=== PATIENT | male | born 1980 | race Caucasian/White ===

== ENCOUNTER 2018-06-17 19:05 | Emergency (ER) | payer SELFPAY, OTHER ==
[2018-06-17 20:06] LABS: BASO # 0.1 10^3/uL (0.0-0.2); BASO % 0.5 % (0.0-1.0); EOS # 0.1 10^3/uL (0.0-0.50); EOS % 0.8 % (0.0-3.0); HEMATOCRIT 47.4 % (42.0-52.0); HEMOGLOBIN 16.4 g/dl (13.5-17.5); IMMATURE GRANULOCYTE % 0.7 % (0-3.0); LYMPH # 1.7 10^3/uL (1.5-4.5); LYMPH % 13.6 % (24.0-44.0); MEAN CORPUSCULAR HEMOGLOBIN 28.9 pg (27.0-33.0); MEAN CORPUSCULAR HGB CONC 34.6 g/dl (32.0-36.5); MEAN CORPUSCULAR VOLUME 83.6 fl (80.0-96.0); MONO % 8.3 % (0.0-5.0); NEUTROPHILS # 9.5 10^3/uL (1.8-7.7); NEUTROPHILS % 76.1 % (36.0-66.0); PLATELET COUNT, AUTOMATED 400 10^3/uL (150-450); RED BLOOD COUNT 5.67 10^6/uL (4.30-6.10); RED CELL DISTRIBUTION WIDTH 13.7 % (11.5-14.5); WHITE BLOOD COUNT 12.5 10^3/uL (4.0-10.0)
[2018-06-17 20:24] LABS: ALBUMIN 3.8 GM/DL (3.2-5.2); ALBUMIN/GLOBULIN RATIO 1.03 (1.00-1.93); ALKALINE PHOSPHATASE 102 U/L (45-117); ALT/SGPT 31 U/L (12-78); AMYLASE 37 U/L (25-115); ANION GAP 7 MEQ/L (8-16); AST/SGOT 21 U/L (7-37); BILIRUBIN,DIRECT 0.1 MG/DL (0.0-0.2); BILIRUBIN,TOTAL 0.5 MG/DL (0.2-1.0); BLOOD UREA NITROGEN 8 MG/DL (7-18); CALCIUM LEVEL 8.9 MG/DL (8.5-10.1); CARBON DIOXIDE LEVEL 30 MEQ/L (21-32); CHLORIDE LEVEL 103 MEQ/L (98-107); CREATININE FOR GFR 0.78 MG/DL (0.70-1.30); GLOMERULAR FILTRATION RATE > 60.0 (>60); GLUCOSE, FASTING 91 MG/DL (70-100); LIPASE 158 U/L (73-393); POTASSIUM SERUM 4.5 MEQ/L (3.5-5.1); SODIUM LEVEL 140 MEQ/L (136-145); TOTAL PROTEIN 7.5 GM/DL (6.4-8.2)
[2018-06-17] MEDS: GI COCKTAIL 50ML BTL(HYOSCYAMINE/MAALOX/LIDOCAINE VISCOUS)(1:3:1) PO (21:50)
== END 2018-06-17 22:16 | disposition home or self-care (01) ==
LOC: M ED 19:05
DX: K43.9 Ventral hernia without obstruction or gangrene (principal); K21.9 Gastro-esophageal reflux disease without esophagitis; Z91.018 Allergy to other foods
CPT/HCPCS: 76705

== ENCOUNTER 2018-08-14 19:48 | Emergency (ER) | payer SELFPAY, OTHER ==
[2018-08-14] MEDS: NS 1,000 ML IV (20:03)
[2018-08-14] MEDS: ASPIRIN 81 MG CHEW TABLET PO (20:15)
[2018-08-14 20:17] LABS: BASO # 0.1 10^3/uL (0.0-0.2); BASO % 0.4 % (0.0-1.0); EOS # 0.1 10^3/uL (0.0-0.50); EOS % 1.2 % (0.0-3.0); HEMATOCRIT 45.9 % (42.0-52.0); HEMOGLOBIN 15.8 g/dl (13.5-17.5); IMMATURE GRANULOCYTE % 0.5 % (0-3.0); LYMPH % 17.4 % (24.0-44.0); MEAN CORPUSCULAR HEMOGLOBIN 28.7 pg (27.0-33.0); MEAN CORPUSCULAR HGB CONC 34.4 g/dl (32.0-36.5); MEAN CORPUSCULAR VOLUME 83.5 fl (80.0-96.0); MONO # 0.9 10^3/uL (0.0-0.8); MONO % 7.7 % (0.0-5.0); NEUTROPHILS # 8.3 10^3/uL (1.8-7.7); NEUTROPHILS % 72.8 % (36.0-66.0); PLATELET COUNT, AUTOMATED 379 10^3/uL (150-450); RED CELL DISTRIBUTION WIDTH 13.3 % (11.5-14.5); WHITE BLOOD COUNT 11.4 10^3/uL (4.0-10.0)
[2018-08-14 20:52] LABS: ALBUMIN 3.7 GM/DL (3.2-5.2); ALBUMIN/GLOBULIN RATIO 1.03 (1.00-1.93); ALKALINE PHOSPHATASE 84 U/L (45-117); ALT/SGPT 28 U/L (12-78); ANION GAP 8 MEQ/L (8-16); AST/SGOT 25 U/L (7-37); BILIRUBIN,DIRECT < 0.1 MG/DL (0.0-0.2); BILIRUBIN,TOTAL 0.5 MG/DL (0.2-1.0); BLOOD UREA NITROGEN 11 MG/DL (7-18); CARBON DIOXIDE LEVEL 28 MEQ/L (21-32); CHLORIDE LEVEL 103 MEQ/L (98-107); CPK CREATINE PHOSPHOKINASE 217 U/L (39-308); CREATININE FOR GFR 0.88 MG/DL (0.70-1.30); FREE T4 0.89 NG/DL (0.76-1.46); GLOMERULAR FILTRATION RATE > 60.0 (>60); GLUCOSE, FASTING 104 MG/DL (70-100); MB/CK RELATIVE INDEX 0.78 (< OR =4); POTASSIUM SERUM 3.9 MEQ/L (3.5-5.1); SODIUM LEVEL 139 MEQ/L (136-145); TOTAL PROTEIN 7.3 GM/DL (6.4-8.2); TROPONIN I < 0.02 NG/ML (< 0.10)
== END 2018-08-14 21:31 | disposition home or self-care (01) ==
LOC: M ED 19:48
DX: I49.3 Ventricular premature depolarization (principal); R07.89 Other chest pain; K21.9 Gastro-esophageal reflux disease without esophagitis; K44.9 Diaphragmatic hernia without obstruction or gangrene; Z72.0 Tobacco use; Z91.018 Allergy to other foods
CPT/HCPCS: 71045

== ENCOUNTER 2019-10-09 12:54 | Emergency (ER) | payer OTHER, SELFPAY ==
[~2019-10-09] VITALS: Ht 182.9 cm; Wt 141.6 kg
[~2019-10-09 12:54] MED LIST: PROT1TAB2 PO
[2019-10-09] MEDS ORDERED: NS 1,000 ML IV ONE (13:30)
[2019-10-09] MEDS ORDERED: ONDANSETRON 4MG/2ML VIAL (J2405) IV ONE (13:45)
[2019-10-09 13:47] LABS: BASO # 0.1 10^3/uL (0.0-0.2); BASO % 0.6 % (0.0-1.0); EOS # 0.1 10^3/uL (0.0-0.5); EOS % 0.7 % (0.0-3.0); HEMATOCRIT 49.7 % (42.0-52.0); HEMOGLOBIN 16.5 g/dl (13.5-17.5); LYMPH # 1.2 10^3/uL (1.5-5.0); LYMPH % 10.3 % (24.0-44.0); MEAN CORPUSCULAR HGB CONC 33.2 g/dl (32.0-36.5); MEAN CORPUSCULAR VOLUME 84.2 fl (80.0-96.0); MONO # 0.5 10^3/uL (0.0-0.8); MONO % 4.4 % (0.0-5.0); NEUTROPHILS % 82.4 % (36.0-66.0); WHITE BLOOD COUNT 12.1 10^3/uL (4.0-10.0)
[2019-10-09 14:06] LABS: PLATELET COUNT, AUTOMATED 321 10^3/uL (150-450)
[2019-10-09 14:18] LABS: ALT/SGPT 29 U/L (12-78); BILIRUBIN,DIRECT 0.2 MG/DL (0.0-0.2); BILIRUBIN,TOTAL 0.5 MG/DL (0.2-1.0); BLOOD UREA NITROGEN 12 MG/DL (7-18); CALCIUM LEVEL 8.8 MG/DL (8.5-10.1); CARBON DIOXIDE LEVEL 19 MEQ/L (21-32); CHLORIDE LEVEL 106 MEQ/L (98-107); CK-MB VALUE MASS 3.3 NG/ML (<3.6); CPK CREATINE PHOSPHOKINASE 321 U/L (39-308); ETHYL ALCOHOL (ETHANOL) < 0.003 % (0.000-0.010); GLOMERULAR FILTRATION RATE > 60.0 (>60); GLUCOSE, FASTING 156 MG/DL (70-100); LIPASE 667 U/L (73-393); MB/CK RELATIVE INDEX 1.03 (< OR =4); POTASSIUM SERUM 3.8 MEQ/L (3.5-5.1); SODIUM LEVEL 139 MEQ/L (136-145); TOTAL PROTEIN 7.7 GM/DL (6.4-8.2); TROPONIN I < 0.02 NG/ML (< 0.10)
[2019-10-09] MEDS ORDERED: levETIRAcetam INJection 1,000 MG in D5W 100 ML IV ONE (14:30)
--- NOTE | 2019-10-09 14:35 | REP ---
Portable chest x-ray: Single view. History: Chest pain. Comparison study: August 14, 2018. Findings: EKG electrodes are seen. Lungs are well inflated and clear. The pleural angles are sharp. Heart is not enlarged. Pulmonary vasculature is not increased. No bony abnormalities seen. Impression: No active disease. Electronically Signed by Ryder Barry MD 10/09/2019 02:27 P
--- NOTE | 2019-10-09 14:38 | REP ---
Clinical: Seizures . Comparison: None . Findings: The ventricles, sulci, and cisterns are normal in position and appearance. Telles-white differentiation is maintained. No acute intracranial hemorrhage, mass/mass effect, pathology or trauma/injury. No evidence for acute infarction. No extra-axial fluid collection. Calvarium is intact. Mild sinusitis. Impression: Normal noncontrast head CT. No evidence for acute intracranial pathology or trauma/injury. Electronically Signed by Troy Kelsey MD 10/09/2019 02:29 P
[2019-10-09] MEDS ORDERED: ISOVUE-370 76% 100ML VIAL (Q9967) As Ordered ONE (14:49)
[2019-10-09 15:15] LABS: AMPHETAMINES LEVEL URINE NEGATIVE (NEGATIVE); BARBITURATES URINE NEGATIVE (NEGATIVE); BENZODIAZEPINES URINE NEGATIVE (NEGATIVE); CANNABINOIDS URINE POSITIVE (NEGATIVE); COCAINE METABOLITE URINE NEGATIVE (NEGATIVE); METHADONE URINE NEGATIVE (NEGATIVE); OPIATES URINE NEGATIVE (NEGATIVE); PHENCYCLIDINE URINE NEGATIVE (NEGATIVE)
--- NOTE | 2019-10-09 15:22 | REP ---
Clinical: Pancreatitis. Technique: Axial contrast enhanced images from the lung bases to the pubic symphysis using 100 ml Isovue 370 intravenous contrast material with coronal and sagittal re-formations. Findings: Lung bases are clear. Visualized heart and pericardium normal. Liver, spleen, pancreas, gallbladder, bilateral adrenal glands and kidneys are relatively normal. No peripancreatic inflammatory stranding or fluid is identified to suggest pancreatitis by CT. A subcentimeter right adrenal nodule likely represents small adenoma. Possible 1 mm nonobstructing right renal calculus. The enteric system is without obstruction or acute inflammatory process. Normal terminal ileum and appendix are identified in the right lower quadrant. Few scattered colonic diverticula noted without acute diverticulitis. Pelvis demonstrates normal bladder and age appropriate prostate/seminal vesicles. No pelvic fluid or ascites. No free air. No adenopathy. Abdominal aorta and vasculature normal. Chronic bilateral L5 spondylolysis without spondylolisthesis, but with mild disc disease. Impression: 1. Normal appearance of the pancreas and surrounding peripancreatic fat without CT evidence for acute pancreatitis. 2. 1 mm nonobstructing right renal calculus. 3. Subcentimeter left adrenal adenoma suspected. 4. Few scattered diverticula without acute diverticulitis. 5. Chronic bilateral L5 spondylolysis and L5-S1 disc disease. Electronically Signed by Troy Kelsey MD 10/09/2019 03:14 P
[2019-10-09] MEDS ORDERED: ONDA4TAB6 PO (15:27)
[2019-10-09] MEDS ORDERED: KEPP1TAB2 PO (15:27)
[2019-10-09 15:45] VITALS: BP 131/68
--- NOTE | 2019-10-09 20:19 | ECGEPIP ---
[facility] - ED Test Date: 2019-10-09 Pat Name: SHAISTA DIANA Department: Room: - Gender: Male [employer]: JOlamide : 1980 Requested By: AL Saldaña Order Number: [id number] Reading MD: Sonia Simon Measurements Intervals [place] Rate: 79 P: 24 WA: 170 QRS: -37 QRSD: 106 T: 9 QT: 370 QTc: 424 Interpretive Statements SINUS RHYTHM MARKED LEFT AXIS DEVIATION SIMILAR 08/14/18 Electronically Signed on 10-09-2019 20:18:28 EST by Sonia Simon
== END 2019-10-09 16:01 | disposition home or self-care (01) ==
LOC: EDBD 12:54 → M ED 12:54
DX: G40.89 Other seizures (principal); K85.90 Acute pancreatitis without necrosis or infection, unspecified; F41.9 Anxiety disorder, unspecified; F17.218 Nicotine dependence, cigarettes, with other nicotine-induced disorders; Z91.010 Allergy to peanuts
CPT/HCPCS: 70450; 71045; 74177; 80048; 80076; 80307; 82550; 82553; 83690; 84443; 84484; 85025; 93005; 93041; 94760; 96361; 96365; 96375; 99285; G0480; J1953; J2405; Q9967

== ENCOUNTER → 2020-02-11 | Outpatient (CLI) | payer OTHER ==
[~2020-02-11] MED LIST changes: +D31000TA2 PO; +FAMO20TA PO; +KEPP1TAB2 PO; +MULTCAP PO; +ONDA4TAB6 PO
== END ==
LOC: M LABSMTC 11:16
PROVIDERS: ATTEND Anesthesiology
DX: Z01.818 Encounter for other preprocedural examination (principal); Z11.59 Encounter for screening for other viral diseases
CPT/HCPCS: C9803; U0003

== ENCOUNTER → 2020-02-12 | Outpatient (CLI) | payer OTHER ==
[~2020-02-12] MED LIST changes: -D31000TA2 PO; +VITAD1000T PO
--- NOTE | 2020-02-12 08:51 | REP ---
Clinical: Upper abdominal pain. Technique: Real time wilburn scale ultrasound examination using curved array transducer. Findings: The liver is mildly echogenic and minimally enlarged suggesting fatty infiltration and hepatomegaly. No focal hepatic lesion identified. Limited evaluation of the pancreas is unremarkable. The gallbladder is normal and without gallstones, wall thickening, or pericholecystic fluid. No biliary ductal dilatation is appreciated and the common bile duct measures 4.9 mm diameter. Right kidney is normal in reniform shape without hydronephrosis and measures 12.6 x 7.0 x 6.5 cm. No ascites in the visualized right upper quadrant. Impression: Hepatomegaly and mild hepatosteatosis suggested. Electronically Signed by Troy Kelsey MD 02/12/2020 08:43 A
== END ==
LOC: M RAD 07:16
PROVIDERS: ATTEND Internal Medicine Gastroenterology
DX: R10.12 Left upper quadrant pain (principal)

== ENCOUNTER 2020-02-14 10:38 | Day surgery (SDC) | payer OTHER ==
[~2020-02-14] VITALS: Ht 182.9 cm; Wt 133.4 kg
[~2020-02-14 10:38] MED LIST changes: +NS 1,000 ML IV ONE
[2020-02-14] MEDS ORDERED: propofoL 200 MG/20 ML VIAL As Ordered ONE ×2 (11:16→11:35)
[2020-02-14] MEDS ORDERED: LIDOCAINE 2% 100MG/5ML SDV (FOR ANES.) As Ordered ONE (11:16)
--- NOTE | 2020-02-14 12:21 | ROOR ---
Patient Name: Shawn Rojas Procedure Date: 02/14/2020 11:22 AM Date of : 1980 Age: 39 Room: [facility] Gender: Male Note Status: Finalized Procedure: Upper GI endoscopy Indications: Dyspepsia, Heartburn, Suspected gastro-esophageal reflux disease Providers: Catracho Davis MD Referring MD: 1. No Referring Physician 1. No Referring Physician, Admin. Requesting Provider: Medicines: Monitored Anesthesia Care Complications: No immediate complications. Procedure: Pre-Anesthesia Assessment: - Prior to the procedure, a History and Physical was performed, and patient medications and allergies were reviewed. The patient is competent. The risks and benefits of the procedure and the sedation options and risks were discussed with the patient. All questions were answered and informed consent was obtained. Patient identification and proposed procedure were verified by the physician, the nurse and the anesthesiologist in the procedure room. Mental Status Examination: alert and oriented. Airway Examination: normal oropharyngeal airway and neck mobility. Respiratory Examination: clear to auscultation. CV Examination: normal. Prophylactic Antibiotics: The patient does not require prophylactic antibiotics. Prior Anticoagulants: The patient has taken no previous anticoagulant or antiplatelet agents. ASA Grade Assessment: II - A patient with mild systemic disease. After reviewing the risks and benefits, the patient was deemed in satisfactory condition to undergo the procedure. The anesthesia plan was to use monitored anesthesia care (MAC). Immediately prior to administration of medications, the patient was re-assessed for adequacy to receive sedatives. The heart rate, respiratory rate, oxygen saturations, blood pressure, adequacy of pulmonary ventilation, and response to care were monitored throughout the procedure. The physical status of the patient was re-assessed after the procedure. The Endoscope was introduced through the mouth, and advanced to the second part of duodenum. The upper GI endoscopy was accomplished without difficulty. The patient tolerated the procedure well. Findings: The examined esophagus was normal. The Z-line was regular and was found in the distal esophagus. Scattered mild inflammation characterized by erythema and granularity was found in the gastric antrum. Biopsies were taken with a cold forceps for Helicobacter pylori testing. Verification of patient identification for the specimen was done by the physician and nurse using the patient's name, date and medical record number. Estimated blood loss was minimal. The duodenal bulb and second portion of the duodenum were normal. Biopsies for histology were taken with a cold forceps for evaluation of celiac disease. Impression: - Normal esophagus. - Z-line regular, in the distal esophagus. - Gastritis. Biopsied. - Normal duodenal bulb and second portion of the duodenum. Biopsied. Recommendation: - Patient has a contact number available for emergencies. The signs and symptoms of potential delayed complications were discussed with the patient. Return to normal activities tomorrow. Written discharge instructions were provided to the patient. - High fiber diet. - Continue present medications. - Follow an antireflux regimen. - Await pathology results. - Telephone GI clinic for pathology results in 2 weeks. - Return to primary care physician. Catracho Davis MD Catracho Davis MD 02/14/2020 12:20:46 PM Electronically signed by Catracho Davis MD Number of Addenda: 0 Note Initiated On: 02/14/2020 11:22 AM Estimated Blood Loss: Estimated blood loss was minimal.
--- NOTE | 2020-02-14 12:25 | ROOR ---
Patient Name: Shawn Rojas Procedure Date: 02/14/2020 11:23 AM Date of : 1980 Age: 39 Room: [facility] Gender: Male Note Status: Finalized Procedure: Colonoscopy Indications: Change in bowel habits Providers: Catracho Davis MD Referring MD: 1. No Referring Physician 1. No Referring Physician, Admin. Requesting Provider: Medicines: Monitored Anesthesia Care Complications: No immediate complications. Procedure: Pre-Anesthesia Assessment: - Prior to the procedure, a History and Physical was performed, and patient medications and allergies were reviewed. The patient is competent. The risks and benefits of the procedure and the sedation options and risks were discussed with the patient. All questions were answered and informed consent was obtained. Patient identification and proposed procedure were verified by the physician, the nurse and the anesthesiologist in the procedure room. Mental Status Examination: alert and oriented. Airway Examination: normal oropharyngeal airway and neck mobility. Respiratory Examination: clear to auscultation. CV Examination: normal. Prophylactic Antibiotics: The patient does not require prophylactic antibiotics. Prior Anticoagulants: The patient has taken no previous anticoagulant or antiplatelet agents. ASA Grade Assessment: III - A patient with severe systemic disease. After reviewing the risks and benefits, the patient was deemed in satisfactory condition to undergo the procedure. The anesthesia plan was to use monitored anesthesia care (MAC). Immediately prior to administration of medications, the patient was re-assessed for adequacy to receive sedatives. The heart rate, respiratory rate, oxygen saturations, blood pressure, adequacy of pulmonary ventilation, and response to care were monitored throughout the procedure. The physical status of the patient was re-assessed after the procedure. The Colonoscope was introduced through the anus and advanced to the terminal ileum, with identification of the appendiceal orifice and IC valve. The colonoscopy was performed without difficulty. The patient tolerated the procedure well. The quality of the bowel preparation was good. The terminal ileum, ileocecal valve, appendiceal orifice, and rectum were photographed. Scope insertion time was 3 minutes. Scope withdrawal time was 9 minutes. The total duration of the procedure was 12 minutes. Findings: The perianal and digital rectal examinations were normal. The terminal ileum appeared normal. A 3 mm polyp was found in the cecum. The polyp was sessile. The polyp was removed with a cold biopsy forceps. Resection and retrieval were complete. Verification of patient identification for the specimen was done by the physician and nurse using the patient's name, date and medical record number. Estimated blood loss was minimal. Two pedunculated polyps were found in the sigmoid colon. The polyps were 15 to 30 mm in size. These polyps were removed with a hot snare. Resection and retrieval were complete. To close a defect after polypectomy, three hemostatic clips were successfully placed. There was no bleeding at the end of the procedure. Non-bleeding external and internal hemorrhoids were found during retroflexion. The hemorrhoids were medium-sized. Impression: - The examined portion of the ileum was normal. - One 3 mm polyp in the cecum, removed with a cold biopsy forceps. Resected and retrieved. - Two 15 to 30 mm polyps in the sigmoid colon, removed with a hot snare. Resected and retrieved. Clips were placed. - Non-bleeding external and internal hemorrhoids. Recommendation: - Patient has a contact number available for emergencies. The signs and symptoms of potential delayed complications were discussed with the patient. Return to normal activities tomorrow. Written discharge instructions were provided to the patient. - High fiber diet. - Continue present medications. - Miralax 1 capful (17 grams) in 8 ounces of water PO daily for 5 days. - Await pathology results. - Repeat colonoscopy in 1 year for surveillance based on pathology results. - Return to GI clinic in [facility] (address [address], [address], [place], [address]) in 4 -- 6 weeks. Please call GI clinic @ [phone] for apppointment date and time. - Return to primary care physician. Catracho Davis MD Catracho Davis MD 02/14/2020 12:24:49 PM Electronically signed by Catracho Davis MD Number of Addenda: 0 Note Initiated On: 02/14/2020 11:23 AM Estimated Blood Loss: Estimated blood loss was minimal.
[2020-02-14 12:30] VITALS: BP 136/90
== END 2020-02-14 12:52 | disposition home or self-care (01) ==
LOC: M OPP 10:38
PROVIDERS: ATTEND Internal Medicine Gastroenterology
DX: K63.5 Polyp of colon (principal); K64.8 Other hemorrhoids; R19.4 Change in bowel habit; K29.70 Gastritis, unspecified, without bleeding; R10.13 Epigastric pain; Z79.899 Other long term (current) drug therapy; Z86.69 Personal history of other diseases of the nervous system and sense organs; Z91.018 Allergy to other foods; Z87.891 Personal history of nicotine dependence

== ENCOUNTER → 2020-05-25 | Outpatient (CLI) | payer OTHER ==
[~2020-05-25] MED LIST changes: +D31000TA2 PO; +ISOVUE-370 76% 100ML VIAL As Ordered ONE; -NS 1,000 ML IV ONE; -VITAD1000T PO
--- NOTE | 2020-06-04 08:40 | REP ---
CT ABDOMEN AND PELVIS WITHOUT AND WITH INTRAVENOUS (IV) CONTRAST: WITHOUT ORAL CONTRAST HISTORY: Benign neoplasm left adrenal gland. Prediabetes. CT CONTRAST DOSE: 100 mL of intravenous Isovue-370. Precontrast and dual-phase postcontrast imaging is acquired. COMPARISON: CT study 10/09/2019. CT FINDINGS: Preliminary digital talent scout radiograph is unremarkable. The lung bases are clear on axial CT images. Noncontrast study demonstrates a 13-mm stable low-density nodule in the medial posterior aspect of the left adrenal gland unchanged from the comparison study 10/09/2019. 11 mm by measurement on the prior exam. This is felt to be stable. It has a mean Hounsfield unit on noncontrast study of -3 Hounsfield units. No significant contrast enhancement is seen. The right adrenal gland is normal in appearance. Kidneys enhance symmetrically and are morphologically intact. There are two tiny calculi in the infrarenal collecting system lower pole right kidney, 1-2 mm in size. No hydronephrosis seen. No small or large bowel mass lesion is seen. Normal appendix is observed. Seminal vesicle, prostate, and urinary bladder are unremarkable. No abdominal wall defect is seen. Bone window settings demonstrate mild disc bulging and disc space narrowing at L3-4. No bony destructive lesion. IMPRESSION: Two tiny intrarenal calculi lower pole right kidney. Benign adrenal adenoma on the left 13 mm in greatest diameter. No acute abnormality. MTDD
== END ==
LOC: M RAD 10:04
PROVIDERS: ATTEND Internal Medicine Endocrinology, Diabetes & Metabolism
DX: D35.02 Benign neoplasm of left adrenal gland (principal); R73.03 Prediabetes; N20.0 Calculus of kidney
CPT/HCPCS: 74178; Q9967

== ENCOUNTER → 2020-08-03 | Outpatient (CLI) | payer SELFPAY ==
[~2020-08-03] MED LIST changes: -ISOVUE-370 76% 100ML VIAL As Ordered ONE
== END ==
LOC: M LABSMTC 15:30
PROVIDERS: ATTEND Pediatrics
DX: Z20.828 Contact with and (suspected) exposure to other viral communicable diseases (principal)

== ENCOUNTER → 2021-03-24 | Outpatient (CLI) | payer OTHER ==
[~2021-03-24] MED LIST changes: +BUSP10TA PO; +BUSP15TA47; +DIVA250T67 PO; +FAMO1TAB11; +VITMTA PO
== END ==
LOC: M LABSMTC 13:13
PROVIDERS: ATTEND Anesthesiology
DX: Z20.828 Contact with and (suspected) exposure to other viral communicable diseases (principal); Z11.59 Encounter for screening for other viral diseases

== ENCOUNTER 2021-03-29 08:55 | Day surgery (SDC) | payer OTHER ==
[~2021-03-29] VITALS: Ht 182.9 cm; Wt 135.6 kg
[~2021-03-29 08:55] MED LIST changes: +NS 1,000 ML IV ONE
[2021-03-29] MEDS ORDERED: propofoL 500 MG/50 ML VIAL As Ordered ONE (10:05)
[2021-03-29] MEDS ORDERED: propofoL 200 MG/20 ML VIAL As Ordered ONE (10:05)
[2021-03-29] MEDS ORDERED: LIDOCAINE 2% 100MG/5ML SDV (FOR ANES.) As Ordered ONE (10:05)
[2021-03-29 10:35] VITALS: BP 136/80
== END 2021-03-29 10:43 | disposition home or self-care (01) ==
LOC: M OPP 08:55
PROVIDERS: ATTEND Internal Medicine Gastroenterology
DX: Z86.010 Personal history of colon polyps (principal); K63.5 Polyp of colon; K64.8 Other hemorrhoids; E78.5 Hyperlipidemia, unspecified; K76.0 Fatty (change of) liver, not elsewhere classified; F41.9 Anxiety disorder, unspecified; F32.9 Major depressive disorder, single episode, unspecified; G40.909 Epilepsy, unspecified, not intractable, without status epilepticus; F10.21 Alcohol dependence, in remission; Z91.018 Allergy to other foods; Z79.899 Other long term (current) drug therapy; Z80.42 Family history of malignant neoplasm of prostate; Z80.8 Family history of malignant neoplasm of other organs or systems

== ENCOUNTER 2021-09-24 18:09 | Emergency (ER) | payer OTHER ==
[~2021-09-24] VITALS: Ht 182.9 cm; Wt 144.0 kg
[~2021-09-24 18:09] MED LIST changes: -NS 1,000 ML IV ONE
[2021-09-24 18:17] VITALS: BP 155/78
== END 2021-09-24 21:55 | disposition left against medical advice (07) ==
LOC: M ED 18:09
DX: Z53.21 Procedure and treatment not carried out due to patient leaving prior to being seen by health care provider (principal)

== ENCOUNTER 2022-02-02 15:17 | Outpatient (CLI) | payer OTHER ==
[~2022-02-02] VITALS: Ht 181.6 cm; Wt 45.6 kg
[~2022-02-02 15:17] MED LIST changes: +ALBUTEROL 90 MCG/ACT 8GM HFA INHALER INH PRN; +ALBUTEROL SULFATE 2.5 MG/0.5 ML INH NEB SOLN INH PRN; -D31000TA2 PO; +EPINEPHrine INJ 1 MG/ML 1ML AMP IM PRN; +VITA100093 PO; +diphenhydrAMINE 50MG/ML VIAL (J1200) IV PRN; +methylPREDNISolone 125MG 2ML VIAL IV PRN
[2022-02-02] MEDS ORDERED: ACETAMINOPHEN TAB 650MG DOSE (2X325MG) PO ONE (16:15)
[2022-02-02] MEDS ORDERED: diphenhydrAMINE 50MG CAP PO ONE (16:15)
[2022-02-02] MEDS ORDERED: NS 1,000 ML IV SCH (16:15)
[2022-02-02] MEDS ORDERED: BEBTELOVIMAB 175MG 2ML VIAL (EUA) IV ONE (16:45)
[2022-02-02 16:56] VITALS: BP 139/87
== END 2022-02-02 17:55 | disposition home or self-care (01) ==
LOC: M OPCLI4 15:17 → M 4MAIN 15:21 → M OPCLI4 17:55
PROVIDERS: ATTEND Nurse Practitioner Family
DX: U07.1 COVID-19 (principal); Z91.010 Allergy to peanuts

== ENCOUNTER → 2023-09-29 | Outpatient (CLI) | payer OTHER ==
[~2023-09-29] MED LIST changes: -ALBUTEROL 90 MCG/ACT 8GM HFA INHALER INH PRN; -ALBUTEROL SULFATE 2.5 MG/0.5 ML INH NEB SOLN INH PRN; -EPINEPHrine INJ 1 MG/ML 1ML AMP IM PRN; -diphenhydrAMINE 50MG/ML VIAL (J1200) IV PRN; -methylPREDNISolone 125MG 2ML VIAL IV PRN
== END ==
LOC: M RAD 08:00
PROVIDERS: ATTEND Physician Assistant
DX: M47.26 Other spondylosis with radiculopathy, lumbar region (principal)